=== PATIENT | male | born 1990 | race African-American/Black ===

== ENCOUNTER 2020-02-17 18:06 | Emergency (ER) | payer SELFPAY | END 2020-02-17 19:49 | disposition home or self-care (01) | LOC: ERS 18:06 | DX: K04.01 Reversible pulpitis (principal); K02.9 Dental caries, unspecified; K08.89 Other specified disorders of teeth and supporting structures; F17.210 Nicotine dependence, cigarettes, uncomplicated | CPT/HCPCS: 99283 ==

== ENCOUNTER 2020-03-01 13:12 | Emergency (ER) | payer SELFPAY | END 2020-03-01 14:03 | disposition home or self-care (01) | LOC: ERS 13:12 | DX: K03.81 Cracked tooth (principal); F17.210 Nicotine dependence, cigarettes, uncomplicated | CPT/HCPCS: 99282 ==

== ENCOUNTER 2020-07-06 21:53 | Emergency (ER) | payer SELFPAY ==
[2020-07-07] MEDS ORDERED: Ketorolac Tromethamine 30 MG/ML VIAL ONE (00:20)
== END 2020-07-07 00:33 | disposition home or self-care (01) ==
LOC: ERS 21:53
DX: K02.9 Dental caries, unspecified (principal); F17.210 Nicotine dependence, cigarettes, uncomplicated
CPT/HCPCS: 96372; 99282; J1885

== ENCOUNTER 2020-12-09 11:49 | Emergency (ER) | payer SELFPAY ==
[2020-12-09 18:49] LABS: SARS-CoV-2 PCR by NAA Not Detected (NotDetected)
== END 2020-12-09 13:05 | disposition home or self-care (01) ==
LOC: ERS 11:49
DX: R11.2 Nausea with vomiting, unspecified (principal); Z20.822 Contact with and (suspected) exposure to COVID-19; J45.909 Unspecified asthma, uncomplicated; F17.210 Nicotine dependence, cigarettes, uncomplicated
CPT/HCPCS: 99284; U0003; U0005